=== PATIENT | female | born 1975 | race Caucasian/White ===

== ENCOUNTER 2016-12-10 18:18 | Emergency (ER) | payer SELFPAY ==
[~2016-12-10 18:18] MED LIST: NAPR500T8 PO
[2016-12-10 18:30] VITALS: BP 124/65
[2016-12-10] MEDS ORDERED: IBUP400T18 PO (18:46)
--- NOTE | 2016-12-10 18:46 | PHYS DOC ---
Past History Past Medical History: Diabetes Past Surgical History: Tubal ligation, Other Additional Past Surgical Histo: BREAST REDUCTION; ADNOIDECTOMY Smoking: Cigarettes, Greater than 1 pack/day Alcohol Use: None Drug Use: None Adult General Chief Complaint Chief Complaint: MULTIPLE COMPLAINTS HPI HPI 41-year-old female presenting to the emergency department today with a sore throat. She describes it as a scratchy pain that is mild intermittent nonradiating and without alleviating factors. She has this every 2 or 3 times a year. She thinks it may be allergies but is concerned that it might be strep throat. Review of systems is negative for chest pain, shortness of breath, fevers chills nausea or vomiting. All other review of systems is negative unless otherwise noted in history of present illness. ED course: 41-year-old female presenting to the emergency department today with sore throat. Vital signs unremarkable. Physical exam showed mild erythema of the posterior pharynx without any evidence of ZIPPER SETTER CHAINSTITCH. Normal range of motion of the neck. Otherwise unremarkable. The patient was then discharged home in stable condition to follow up with their primary care physician over the next 2- 3 days. They were to return if their symptoms worsened or if they were concerned for any reason. [id number] discharge instructions and return precautions were given. Patient's questions were answered to their satisfaction. Patient is comfortable plan. Review of Systems Review of Systems SEE ABOVE. Allergies Allergies Allergies Coded Allergies Type Severity Reaction Last Updated Verified No Known Drug Allergies 10/25/13 No Physical Exam Physical Exam See above Constitutional: Well developed, well nourished, no acute distress, non-toxic appearance. [] HENT: Normocephalic, atraumatic, bilateral external ears normal, oropharynx moist, no oral exudates, nose normal. [] Eyes: PERRLA, EOMI, conjunctiva normal, no discharge. [] Neck: Normal range of motion, no tenderness, supple, no stridor. [] Cardiovascular:Heart rate regular rhythm, no murmur [] Lungs & Thorax: Bilateral breath sounds clear to auscultation [] Abdomen: Bowel sounds normal, soft, no tenderness, no masses, no pulsatile masses. [] Skin: Warm, dry, no erythema, no rash. [] Back: No tenderness, no CVA tenderness. [] Extremities: No tenderness, no cyanosis, no clubbing, ROM intact, no edema. [] Neurologic: Alert and oriented X 3, normal motor function, normal sensory function, no focal deficits noted. [] Psychologic: Affect normal, judgement normal, mood normal. [] EKG EKG [] Radiology/Procedures Radiology/Procedures [] Course & Med Decision Making Course & Med Decision Making Pertinent Labs and Imaging studies reviewed. (See chart for details) [] Dragon Disclaimer Dragon Disclaimer This chart was dictated in whole or in part using Voice Recognition software in a busy, high-work load, and often noisy Emergency Department environment. It may contain unintended and wholly unrecognized errors or omissions. Departure Departure: Impression: Primary Impression: Viral sore throat Disposition: HOME, SELF-CARE Condition: STABLE Referrals: PCP,DAYAMI (PCP) MARIEL ASHRAF MD Patient Instructions: Sore Throat, [id number] Additional Instructions: Thank you for allowing us to participate in your care today. Followup with your primary care physician in 3 days if your symptoms do not improve. Call your Primary Doctor tomorrow and inform them of your visit today. If you do not have a primary care provider you can ask for a list of our primary care providers. Return to the emergency department you have any new or concerning findings. This should be evaluated by the primary care physician and any necessary consulting services for continued management within a few days after discharge. Return to emergency room if you have any new or concerning symptoms including but not limited to fever, chills, nausea, vomiting, intractable pain, any new rashes, chest pain, shortness of air, uncontrolled bleeding, difficulty breathing, and/or vision loss. Scripts Ibuprofen (IBUPROFEN) 400 Mg Tablet 1 TAB PO PRN Q8HRS Y for PAIN, #20 TAB Prov: YANELI SAMUELS MD 12/10/16 YANELI SAMUELS MD Dec 10, 2016 18:46
== END 2016-12-10 18:50 | disposition home or self-care (01) ==
LOC: ER 18:18
DX: J02.8 Acute pharyngitis due to other specified organisms (principal); B97.89 Other viral agents as the cause of diseases classified elsewhere; E11.9 Type 2 diabetes mellitus without complications; F17.210 Nicotine dependence, cigarettes, uncomplicated
CPT/HCPCS: 87070; 87880; 99283

== ENCOUNTER 2018-10-10 17:49 | Emergency (ER) | payer SELFPAY ==
[~2018-10-10] VITALS: Ht 157.5 cm; Wt 90.7 kg
[~2018-10-10 17:49] MED LIST changes: +IBUP400T18 PO
[2018-10-10 18:25] VITALS: BP 142/80
[2018-10-10] MEDS ORDERED: CYCL-331 PO (18:25)
--- NOTE | 2018-10-10 18:25 | PHYS DOC ---
Past History Past Medical History: Diabetes, Endometriosis, Fibromyalgia Past Surgical History: No Surgical History Additional Past Surgical Histo: BREAST REDUCTION; ADNOIDECTOMY Smoking: Cigarettes, Greater than 1 pack/day Additional Smoking Information: 1 PPD FOR 25 YEARS Alcohol Use: None Drug Use: None Adult General Chief Complaint Chief Complaint: LOWER BACK PAIN OR INJURY HPI HPI 43-year-old female presents with left lateral back pain. The patient was standing at the sink 3 days ago when she felt a strain/pop sensation in the lower back. She had pain across her L2-L4 area. The pain has localized more to the left side. It is lateral of her spine out in the muscles. She has been taking Aleve once a day but it has not made the pain go away. She denies trauma, falls, or overuse. She has not been doing any heavy lifting. She denies fever or chills. Review of Systems Review of Systems Constitutional: Denies fever or chills [] Eyes: Denies change in visual acuity, redness, or eye pain [] HENT: Denies nasal congestion or sore throat [] Respiratory: Denies cough or shortness of breath [] Cardiovascular: No additional information not addressed in HPI [] GI: Denies abdominal pain, nausea, vomiting, bloody stools or diarrhea [] : Denies dysuria or hematuria [] Musculoskeletal: Left-sided low back pain[] Integument: Denies rash or skin lesions [] Neurologic: Denies headache, focal weakness or sensory changes [] Endocrine: Denies polyuria or polydipsia [] All other systems were reviewed and found to be within normal limits, except as documented in this note. Allergies Allergies Allergies Coded Allergies Type Severity Reaction Last Updated Verified amoxicillin Allergy Mild GI UPSET 10/10/18 Yes clavulanic acid Allergy Mild GI UPSET 10/10/18 Yes Physical Exam Physical Exam Constitutional: Well developed, well nourished, no acute distress, non-toxic appearance. [] HENT: Normocephalic, atraumatic, bilateral external ears normal, oropharynx moist, no oral exudates, nose normal. [] Eyes: PERRLA, EOMI, conjunctiva normal, no discharge. [] Neck: Normal range of motion, no tenderness, supple, no stridor. [] Cardiovascular:Heart rate regular rhythm, no murmur [] Lungs & Thorax: Bilateral breath sounds clear to auscultation [] Abdomen: Bowel sounds normal, soft, no tenderness, no masses, no pulsatile masses. [] Skin: Warm, dry, no erythema, no rash. [] Back: Left-sided lumbar paraspinal muscle spasm and tightness.[] Extremities: No tenderness, no cyanosis, no clubbing, ROM intact, no edema. [] Neurologic: Alert and oriented X 3, normal motor function, normal sensory function, no focal deficits noted. [] Psychologic: Affect normal, judgement normal, mood normal. [] Current Patient Data Vital Signs Vital Signs Date Time Temp Pulse Resp B/P (MAP) Pulse Ox O2 Delivery O2 Flow Rate FiO2 10/10/18 18:02 97.5 94 21 96 Room Air EKG EKG [] Radiology/Procedures Radiology/Procedures [] Course & Med Decision Making Course & Med Decision Making Pertinent Labs and Imaging studies reviewed. (See chart for details) The patient appears to have a muscle strain of her lumbar paraspinal muscles. I have encouraged her a complete twice a day and I will give her prescription for Flexeril. She can ice or apply heat to the area also as needed. She is stable for discharge at this time. [] Dragon Disclaimer Dragon Disclaimer This electronic medical record was generated, in whole or in part, using a voice recognition dictation system. Departure Departure: Impression: Primary Impression: Lumbar strain Disposition: 01 HOME, SELF-CARE Condition: STABLE Referrals: DYAN NEVES (PCP) Patient Instructions: Back Pain, Adult, [id number] Scripts Cyclobenzaprine Hcl (CYCLOBENZAPRINE HCL) 10 Mg Tablet 1 TAB PO TID PRN for MUSCLE SPASMS, #30 TAB Prov: ROBB CUMMINGS DO 10/10/18 Problem Qualifiers Primary Impression: Lumbar strain Encounter type: initial encounter Qualified Codes: S39.012A - Strain of muscle, fascia and tendon of lower back, initial encounter ROBB CUMMINGS DO October 10, 2018 18:25
== END 2018-10-10 18:27 | disposition home or self-care (01) ==
LOC: ER 17:49
DX: S39.012A Strain of muscle, fascia and tendon of lower back, initial encounter (principal); E11.9 Type 2 diabetes mellitus without complications; M79.7 Fibromyalgia; F17.200 Nicotine dependence, unspecified, uncomplicated; Z88.1 Allergy status to other antibiotic agents; X50.9XXA Other and unspecified overexertion or strenuous movements or postures, initial encounter; Y93.89 Activity, other specified; Y92.89 Other specified places as the place of occurrence of the external cause; Y99.8 Other external cause status
CPT/HCPCS: 99283

== ENCOUNTER → 2019-07-14 | Outpatient (CLI) | payer OTHER ==
[~2019-07-14] MED LIST changes: +CYCL-331 PO
--- NOTE | 2019-07-14 14:42 | RAD ---
Indication: Screening recall for nodule in the upper outer left breast. COMPARISON: Screening mammogram of 07/06/2019 TECHNIQUE: XCCL view of the left breast with 2-D and 3-D technique was utilized and reviewed with computer-aided detection. FINDINGS: Scattered fibroglandular densities. With additional imaging, the nodule recalled from screening is shown to be represent a benign intramammary lymph node measuring 6 mm in length. IMPRESSION: Benign intramammary lymph node. No evidence of malignancy. Recommend return to routine screening next due in one year. BI-RADS Category 2 Benign findings Patient entered into a reminder system with target due date for next mammogram.
--- NOTE | 2019-08-18 10:18 | RAD ---
Additional imaging performed included targeted ultrasound of the right breast which confirmed benign sonographic appearance of the lymph node in the posterior upper-outer quadrant. On ultrasound, it measures 9.5 mm in long axis and 6 mm in short axis at the 10:00 position 10 cm from the nipple. Addended on 08/18/2019 10:15:21 AM by Hamida Ortega. Indication: Screening recall for nodule in the upper outer left breast. COMPARISON: Screening mammogram of 07/06/2019 TECHNIQUE: XCCL view of the left breast with 2-D and 3-D technique was utilized and reviewed with computer-aided detection. FINDINGS: Scattered fibroglandular densities. With additional imaging, the nodule recalled from screening is shown to be represent a benign intramammary lymph node measuring 6 mm in length. IMPRESSION: Benign intramammary lymph node. No evidence of malignancy. Recommend return to routine screening next due in one year. BI-RADS Category 2 Benign findings Patient entered into a reminder system with target due date for next mammogram
== END | disposition home or self-care (01) ==
LOC: MAMMO 12:54
PROVIDERS: ATTEND Obstetrics & Gynecology
DX: R92.8 Other abnormal and inconclusive findings on diagnostic imaging of breast (principal)
CPT/HCPCS: 76641; 77066

== ENCOUNTER 2019-09-24 19:20 | Emergency (ER) | payer SELFPAY ==
[~2019-09-24] VITALS: Ht 157.5 cm; Wt 87.2 kg
[2019-09-24 19:22] VITALS: BP 127/82
--- NOTE | 2019-09-24 19:25 | PHYS DOC ---
Past History Past Medical History: Anxiety, Bronchitis, Diabetes, Endometriosis, Fibromyalgia Past Surgical History: No Surgical History Additional Past Surgical Histo: BREAST REDUCTION; ADNOIDECTOMY Smoking: Cigarettes, Greater than 1 pack/day Alcohol Use: None Drug Use: None General Adult EDM: Chief Complaint: CHEST PAIN HPI: HPI: ".. I ve been having these episodes of chest pain... And got this nonproductive cough.. It seems like I get short of breath when I do anything... and it has been constant today...".. " Sometimes I feel.. Like I got a fever..." I have not been very good about my diet and my smoking..." Patient is a 44 year old female who presents with above hx and complaints of CP with cough and dyspnea since Saturday. Patient states the chest discomfort today has been constant. The patient states today radiates from her epigastric area up into left shoulder. Patient also having pain around her back on the right. The patient on right lower chest posterior and seems worse when she takes a deep breath or coughs.. Patient cough reportedly has been nonproductive. Patient does continue to smoke. Patient denies any recent travel outside the [facility]. Patient denies any specific ill contacts other than her who was recently diagnosed with pneumonia. Patient denies any has history of DVT, coagulopathy with her or family members. Patient does not do flu vaccination. Patient has not had a Pneumovax. Patient denies any immunosuppression. Patient has a past medical history of diabetes, fibromyalgia, endometriosis, and anxiety. Patient denies any history of coronary artery disease or angina. Review of Systems: Review of Systems: Constitutional: Subjective fever Eyes: Denies change in visual acuity HENT: Denies nasal congestion or sore throat Respiratory: History of cough and shortness of breath Cardiovascular: Complains of s chest pain . GI: Denies abdominal pain, nausea, vomiting, bloody stools or diarrhea : Denies dysuria Musculoskeletal: Denies back pain or joint pain Integument: Denies rash Neurologic: Denies headache, focal weakness or sensory changes Endocrine: Hx. polyuria or polydipsia Lymphatic: Denies swollen glands Psychiatric: Denies depression or anxiety Heart Score: HEART Score for Chest Pain: HEART Score for Chest Pain Response (Comments) Value History Slighlty/Non-Suspicious 0 ECG Normal 0 Age >45 - < 65 1 Risk Factors 1 or 2 Risk Factors 1 Troponin < Normal Limit 0 Total 2 Risk Factors: Risk Factors: DM, Current or recent (<one month) smoker, HTN, HLP, family history of CAD, obesity. Risk Scores: Score 0 - 3: 2.5% MACE over next 6 weeks - Discharge Home Score 4 - 6: 20.3% MACE over next 6 weeks - Admit for Clinical Observation Score 7 - 10: 72.7% MACE over next 6 weeks - Early Invasive Strategies Family History: Family History: recently had pneumonia Current Medications: Current Meds: See nursing for home meds Allergies: Allergies: Pt. has taken Amoxicillin- but can't take Augmentin it upsets her stomach. Allergies Coded Allergies Type Severity Reaction Last Updated Verified amoxicillin Allergy Mild GI UPSET 10/10/18 Yes clavulanic acid Allergy Mild GI UPSET 10/10/18 Yes Physical Exam: PE: Constitutional: Mild distress, non-toxic appearance. [] HENT: Normocephalic, atraumatic, bilateral external ears normal, oropharynx moist, no oral exudates, nose normal. [] Eyes: PERRLA, EOMI, conjunctiva normal, no discharge. [] Neck: Normal range of motion, no tenderness, supple, no stridor. [] Cardiovascular:Tachycardia Heart rate regular rhythm, no murmur [] Lungs & Thorax: Bilateral breath sounds equal at apex with scattered wheezes on auscultation []. Has right posterior basilar crackles and rhonchi.. Bilateral breast scars from prior breast reductions x2. Abdomen: Bowel sounds normal, soft, no tenderness, no masses, no pulsatile masses. Obese. Scars Skin: Warm, dry, no erythema, no rash. [] Back: No tenderness, no CVA tenderness. [] Extremities: No tenderness, no cyanosis, no clubbing, ROM intact, no edema. No cording appreciated Neurologic: Alert and oriented X 3, normal motor function, normal sensory function, no focal deficits noted. [] Psychologic: Affect anxious, judgement normal, mood normal. [] EKG: EKG: My interpretation EKG shows a sinus tachycardia 105 bpm. No findings of acute STEMI of contralateral changes. [] Radiology/Procedures: Radiology/Procedures: [][address] [address] IMAGING REPORT Signed PATIENT: LYNNETTE MANUEL ACCOUNT: [id number] : 1975 LOCATION: ER AGE: 44 SEX: F EXAM STATUS: PRE ER ORD. PHYSICIAN: GABRIEL WELSH MD REASON: Chest pain PROCEDURE: CHEST PA & LATERAL EXAM: PA and Lateral Views of the Chest DATE: 09/24/2019 9:27 PM INDICATION: Chest pain COMPARISON: 07/27/2006 FINDINGS: The heart is not enlarged. Mediastinal and hilar contours are stable. Patchy opacities are seen in the right infrahilar region and medial right lung base. No pleural effusion or pneumothorax. IMPRESSION: Right lower lung airspace opacities may represent atelectasis or developing consolidation. Electronically signed by: Waldo Longoria MD (09/24/2019 8:37 PM) [facility] DICTATED AND SIGNED BY: WALDO LONGORIA MD DATE: 09/24/192036 CC: GABRIEL WELSH MD; PCP,NO ~ Course & Med Decision Making: Course & Med Decision Making Pertinent Labs and Imaging studies reviewed. (See chart for details) Patient requesting discharge home . Risks of missed cardiac, PE, causes chest pain discussed. Patient declined further lab work, EKG or admission at this time. Patient encouraged to stop smoking. Patient take Tylenol or Ibuprofen for pain. Patient take Zithromax 250 mg daily. Patient use MDI 2 puffs 4 times a day. Must follow-up primary care. Self isolate. Follow-up primary care review ED work-up and pending labs. Patient return if any concerns. Patient did take half an aspirin a day. Must follow up. Impression: 1. Chest Zmra-toocidxy-rhxxr wall 2. Leukocytosis 13.0 3. DM= 253 4. Tobacco Use 5. Rt.Lower Lobe Pneumonia [] Dragon Disclaimer: Dragspencer Disclaimer: This electronic medical record was generated, in whole or in part, using a voice recognition dictation system. Departure Departure: Disposition: HOME/RESIDENCE PRIOR TO ADM Condition: STABLE Referrals: PCP,NO (PCP) Scripts Azithromycin (ZITHROMAX) 250 Mg Tablet 250 MG PO DAILY for ANTI-BIOTIC for 5 Days, #5 TAB 0 Refills Prov: GABRIEL WELSH MD 09/25/19 Albuterol Sulfate (VENTOLIN HFA INHALER) 18 Gm Hfa.aer.ad 2 PUFF IH PRN Q4HRS PRN for FOR ASTHMA, #1 INHALER 0 Refills Prov: GABRIEL WELSH MD 09/25/19 Dragon Disclaimer This chart was dictated in whole or in part using Voice Recognition software in a busy, high-work load, and often noisy Emergency Department environment. It may contain unintended and wholly unrecognized errors or omissions. Dragon Disclaimer This chart was dictated in whole or in part using Voice Recognition software in a busy, high-work load, and often noisy Emergency Department environment. It may contain unintended and wholly unrecognized errors or omissions. GABRIEL WELSH MD September 24, 2019 19:25
[2019-09-24] MEDS ORDERED: IV RINGERS SOLUTION,LACTATED 1,000 ML IV SCH (19:26)
[2019-09-24] MEDS ORDERED: ASPIRIN CHEWABLE 81 MG TABLET. PO ONE (19:30)
[2019-09-24 20:23] LABS: BASO # 0.1 x10^3/uL (0.0-0.2); BASO % 0 % (0-3); EOS # 0.3 x10^3/uL (0.0-0.7); EOS % 2 % (0-3); HEMATOCRIT 41.8 % (36.0-47.0); HEMOGLOBIN 14.1 g/dL (12.0-15.5); LYMPH # 2.8 x10^3/uL (1.0-4.8); LYMPH % 21 % (24-48); MEAN CORPUSCULAR HEMOGLOBIN 33 pg (25-35); MEAN CORPUSCULAR HGB CONC 34 g/dL (31-37); MEAN CORPUSCULAR VOLUME 99 fL (79-100); MONO # 1.1 x10^3/uL (0.0-1.1); MONO % 8 % (0-9); NEUT # 8.8 x10^3uL (1.8-7.7); NEUT % 68 % (31-73); PLATELET COUNT 295 x10^3/uL (140-400); RED BLOOD COUNT 4.23 x10^6/uL (3.50-5.40); RED CELL DISTRIBUTION WIDTH 13.5 % (11.5-14.5)
[2019-09-24 20:24] LABS: U PREG PATIENT NEGATIVE (NEG)
[2019-09-24 20:30] LABS: ANION GAP 6 (6-14); BLOOD UREA NITROGEN 15 mg/dL (7-20); CALCIUM 8.9 mg/dL (8.5-10.1); CARBON DIOXIDE 28 mmol/L (21-32); CHLORIDE 100 mmol/L (98-107); CREATININE 0.8 mg/dL (0.6-1.0); GFR 77.2; GLUCOSE 253 mg/dL (70-99); POTASSIUM 4.1 mmol/L (3.5-5.1); SODIUM 134 mmol/L (136-145)
[2019-09-24 20:30] LABS: AMPHETAMINE/METHAMPHETAMINE NEG (NEG); BARBITURATES NEG (NEG); BENZODIAZEPINES NEG (NEG); CANNABINOIDS NEG (NEG); COCAINE NEG (NEG); METHADONE NEG (NEG); OPIATES NEG (NEG); PHENCYCLIDINE NEG (NEG)
[2019-09-24 20:32] LABS: BACTERIA,URINE 0 /HPF (0-FEW); BILIRUBIN,URINE NEG (NEG); CLARITY,URINE CLEAR; COLOR,URINE YELLOW; GLUCOSE,URINE >=1000 mg/dL (NEG); NITRITE,URINE NEG (NEG); SQUAMOUS EPITHELIAL CELL,UR FEW /LPF; UROBILINOGEN,URINE 0.2 mg/dL (0.2 mg/dL)
[2019-09-24 20:40] LABS: ALBUMIN 3.5 g/dL (3.4-5.0); ALK PHOS 86 U/L (46-116); ALT (SGPT) 19 U/L (14-59); AST (SGOT) 9 U/L (15-37); DIRECT BILIRUBIN < 0.1 mg/dL (0.0-0.2); LIPASE 112 U/L (73-393); MAGNESIUM 2.2 mg/dL (1.8-2.4); TOTAL BILIRUBIN 0.1 mg/dL (0.2-1.0); TOTAL PROTEIN 7.7 g/dL (6.4-8.2)
--- NOTE | 2019-09-24 20:40 | RAD ---
EXAM: PA and Lateral Views of the Chest DATE: 09/24/2019 9:27 PM INDICATION: Chest pain COMPARISON: 07/27/2006 FINDINGS: The heart is not enlarged. Mediastinal and hilar contours are stable. Patchy opacities are seen in the right infrahilar region and medial right lung base. No pleural effusion or pneumothorax. IMPRESSION: Right lower lung airspace opacities may represent atelectasis or developing consolidation. Electronically signed by: Waldo Longoria MD (09/24/2019 8:37 PM) ALISA
[2019-09-25] MEDS ORDERED: ALBU2.5V8 IH (00:09)
[2019-09-25] MEDS ORDERED: AZIT250T PO (00:09)
[2019-09-25] MEDS ORDERED: cefTRIAXone SODIUM 1 GM VIAL ONE (00:13)
[2019-09-25] MEDS ORDERED: IV NORMAL SALINE 50ML 0 ML ONE (00:13)
[2019-09-25] MEDS ORDERED: ASPIRIN CHEWABLE 81 MG TABLET. ONE ×2 (00:14→00:29)
[2019-09-25] MEDS ORDERED: AZITHROMYCIN 250 MG TABLET. PO ONE (00:30)
[2019-09-25 15:14] LABS: THYROID STIM HORMONE (TSH) 1.192 uIU/mL (0.358-3.740)
--- NOTE | 2019-09-25 23:07 | EKG ---
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
== END 2019-09-25 00:30 | disposition home or self-care (01) ==
LOC: ER 19:20
DX: J18.9 Pneumonia, unspecified organism (principal); R07.89 Other chest pain; D72.829 Elevated white blood cell count, unspecified; E11.9 Type 2 diabetes mellitus without complications; F41.9 Anxiety disorder, unspecified; M79.7 Fibromyalgia; F17.210 Nicotine dependence, cigarettes, uncomplicated; Z98.890 Other specified postprocedural states; Z88.1 Allergy status to other antibiotic agents; Z88.6 Allergy status to analgesic agent
CPT/HCPCS: 36415; 71046; 80048; 80061; 80076; 80307; 81001; 81025; 82550; 83690; 83735; 83880; 84443; 84484; 85025; 85379; 85610; 85730; 93005; 99285; J0456

== ENCOUNTER 2019-10-24 04:06 | Emergency (ER) | payer OTHER ==
[~2019-10-24] VITALS: Ht 157.5 cm; Wt 87.2 kg
[~2019-10-24 04:06] MED LIST changes: +ALBU2.5V8 IH; +AZIT250T PO
--- NOTE | 2019-10-24 04:08 | PHYS DOC ---
Past History Past Medical History: Anxiety, Bronchitis, COPD, Diabetes, Endometriosis, Fibromyalgia Additional Past Medical Histor: emphazyma Past Surgical History: Tubal ligation, Other Additional Past Surgical Histo: BREAST REDUCTION; ADNOIDECTOMY Smoking: Cigarettes, Greater than 1 pack/day Alcohol Use: None Drug Use: None General Adult HPI: HPI: "..I am still coughing all the time.. I did anther course of Zithromax...Dr. Lugo..wanted to make sure my pneumonia when away.,..but I ams still coughing..I have not be able to stop smoking yet..." Patient is a 44 year old female who presents with above hx and complaints chronic cough. There is some production of yellow speak sputum. Patient completed a second course of Zithromax 1 week ago. Patient was seen on 09/24/2019 for similar complaints. Coughing is associated with some chest wall pain. Patient states she is reduced her tobacco use but still proximal smoking approximate 1pack/day to her day. No recent travel outside [facility]. No specific ill contacts. Does have a past history of DVT and coagulopathy with family members. Patient does not do flu vaccination. Patient does not do Pneumovax. Patient denies any history of immune suppression. Patient has past history of diabetes, fibromyalgia, endometriosis and anxiety. Patient denies a vt past history of coronary artery disease. Patient denies any history of CHF. Patient denies any history of IV drug use. Review of Systems: Review of Systems: Constitutional: Denies fever or chills Eyes: Denies change in visual acuity HENT: Complaints congestion Respiratory: Complaints of cough and wheezing. Cardiovascular: Denies chest pain or edema GI: Denies abdominal pain, nausea, vomiting, bloody stools or diarrhea : Denies dysuria Musculoskeletal: Denies back pain or joint pain Integument: Denies rash Neurologic: Denies headache, focal weakness or sensory changes Endocrine: Denies polyuria or polydipsia Lymphatic: Denies swollen glands Psychiatric: Denies depression or anxiety Heart Score: HEART Score for Chest Pain: HEART Score for Chest Pain Response (Comments) Value History Moderately Suspicious 1 ECG Nonspecific Repolarizatio 1 Age >45 - < 65 1 Risk Factors 1 or 2 Risk Factors 1 Troponin < Normal Limit 0 Total 4 Risk Factors: Risk Factors: DM, Current or recent (<one month) smoker, HTN, HLP, family history of CAD, obesity. Risk Scores: Score 0 - 3: 2.5% MACE over next 6 weeks - Discharge Home Score 4 - 6: 20.3% MACE over next 6 weeks - Admit for Clinical Observation Score 7 - 10: 72.7% MACE over next 6 weeks - Early Invasive Strategies Family History: Family History: Noncontributory to presentation Current Medications: Current Meds: See nursing for home meds Allergies: Allergies: Allergies Coded Allergies Type Severity Reaction Last Updated Verified amoxicillin Allergy Mild GI UPSET 10/10/18 Yes clavulanic acid Allergy Mild GI UPSET 10/10/18 Yes Physical Exam: PE: Constitutional: , no acute distress, non-toxic appearance. [] HENT: Normocephalic, atraumatic, bilateral external ears normal, oropharynx moist, no oral exudates, nose normal. [] Eyes: PERRLA, EOMI, conjunctiva normal, no discharge. [] Neck: Normal range of motion, no tenderness, supple, no stridor. [] Cardiovascular. Tachycardia:Heart rate regular rhythm, no murmur [] Lungs & Thorax: Bilateral breath sounds equal apex with scattered wheezes. There is some basilar rhonchi on right base on Auscultation [] old surgery scars-breast reduction surgery Abdomen: Bowel sounds normal, soft, no tenderness, no masses, no pulsatile masses. Obese. Old surgery scars Skin: Warm, dry, no erythema, no rash. [] Back: No tenderness, no CVA tenderness. [] Extremities: No tenderness, no cyanosis, no clubbing, ROM intact, no edema. No cording appreciated. Neurologic: Alert and oriented X 3, normal motor function, normal sensory function, no focal deficits noted. [] Psychologic: Affect n anxious judgement poor insight or understanding of medical testing, mood normal. [] EKG: EKG: My interpretation EKG shows a sinus rhythm at 98 bpm. No findings of acute STEMI of contralateral changes. [] Radiology/Procedures: Radiology/Procedures: [][address] [address] IMAGING REPORT Signed PATIENT: LYNNETTE MANUEL ACCOUNT: [id number] : 1975 LOCATION: ER AGE: 44 SEX: F EXAM STATUS: PRE ER ORD. PHYSICIAN: GABRIEL WELSH MD REASON: cough PROCEDURE: CHEST PA & LATERAL EXAM: AP View of the chest DATE: 10/24/2019 4:17 AM INDICATION: Cough COMPARISON: 09/24/2019 FINDINGS: The heart is not enlarged. Mediastinal and hilar contours are stable. Patchy right lung base parenchymal opacities may represent atelectasis or developing consolidation, more prominent than 09/24/2019. No pleural effusion or pneumothorax. IMPRESSION: Patchy right lung base parenchymal opacities may represent atelectasis or developing consolidation, more prominent than 09/24/2019. Electronically signed by: Waldo Heredia MD (10/24/2019 5:09 AM) [facility] DICTATED AND SIGNED BY: WALDO HEREDIA MD DATE: 10/24/19 0509 CC: GABRIEL WELSH MD; PCP,NO ~ Course & Med Decision Making: Course & Med Decision Making Pertinent Labs and Imaging studies reviewed. (See chart for details) Pt.refused CT chest- at 0500 hrs. Patient encouraged to stop smoking. Patient encouraged follow-up with Dr. Lugo. Patient encouraged to return if she elected to have a contrast CT which may show details of her right lower lobe infiltrate. Risks of malignancy discussed. Impression: 1. Cough 2. Hx. Chronic Bronchitis 3. Tobacco Use 4. Rt. lower lobe infiltrate 5. Leukocytosis 13,7 [] Dragon Disclaimer: Dragon Disclaimer: This electronic medical record was generated, in whole or in part, using a voice recognition dictation system. Departure Departure: Disposition: 01 HOME/RESIDENCE PRIOR TO ADM Condition: STABLE Referrals: PCP,NO (PCP) Justification of Admission: Justification of Admission: Justification of Admission Dx: N/A Dragon Disclaimer This chart was dictated in whole or in part using Voice Recognition software in a busy, high-work load, and often noisy Emergency Department environment. It may contain unintended and wholly unrecognized errors or omissions. Dragon Disclaimer This chart was dictated in whole or in part using Voice Recognition software in a busy, high-work load, and often noisy Emergency Department environment. It may contain unintended and wholly unrecognized errors or omissions. GABRIEL WELSH MD Oct 24, 2019 04:08
[2019-10-24] MEDS ORDERED: CONTRAST GIVEN MC PRN (04:30)
[2019-10-24] MEDS: IOHEXOL 350 MG/ML 100 ML VIAL. IV ONE ×2 (04:54→05:02)
[2019-10-24] MEDS ORDERED: IV RINGERS SOLUTION,LACTATED 1,000 ML IV SCH (05:00)
[2019-10-24] MEDS ORDERED: ALBUTEROL SULFATE 8GM INHALER. IH ONE (05:00)
[2019-10-24] MEDS ORDERED: ASPIRIN CHEWABLE 81 MG TABLET. PO ONE (05:00)
[2019-10-24] MEDS ORDERED: methylPREDNISolone SOD SUCC PF 125 MG/2 ML VIAL. IV ONE (05:00)
--- NOTE | 2019-10-24 05:12 | RAD ---
EXAM: AP View of the chest DATE: 10/24/2019 4:17 AM INDICATION: Cough COMPARISON: 09/24/2019 FINDINGS: The heart is not enlarged. Mediastinal and hilar contours are stable. Patchy right lung base parenchymal opacities may represent atelectasis or developing consolidation, more prominent than 09/24/2019. No pleural effusion or pneumothorax. IMPRESSION: Patchy right lung base parenchymal opacities may represent atelectasis or developing consolidation, more prominent than 09/24/2019. Electronically signed by: Waldo Longoria MD (10/24/2019 5:09 AM) ALISA
[2019-10-24 05:21] LABS: BASO # 0.1 x10^3/uL (0.0-0.2); BASO % 1 % (0-3); EOS # 0.4 x10^3/uL (0.0-0.7); EOS % 3 % (0-3); HEMATOCRIT 42.3 % (36.0-47.0); HEMOGLOBIN 14.6 g/dL (12.0-15.5); LYMPH # 3.3 x10^3/uL (1.0-4.8); LYMPH % 24 % (24-48); MEAN CORPUSCULAR HEMOGLOBIN 34 pg (25-35); MEAN CORPUSCULAR HGB CONC 34 g/dL (31-37); MEAN CORPUSCULAR VOLUME 98 fL (79-100); MONO # 1.1 x10^3/uL (0.0-1.1); MONO % 8 % (0-9); NEUT # 8.9 x10^3uL (1.8-7.7); NEUT % 65 % (31-73); PLATELET COUNT 327 x10^3/uL (140-400); RED BLOOD COUNT 4.32 x10^6/uL (3.50-5.40); RED CELL DISTRIBUTION WIDTH 13.5 % (11.5-14.5); WHITE BLOOD COUNT 13.7 x10^3/uL (4.0-11.0)
[2019-10-24 05:28] LABS: BILIRUBIN,URINE NEG (NEG); CLARITY,URINE CLEAR; COLOR,URINE YELLOW; GLUCOSE,URINE NEG (NEG); NITRITE,URINE NEG (NEG); UROBILINOGEN,URINE 0.2 mg/dL (0.2 mg/dL)
[2019-10-24 05:29] LABS: BACTERIA,URINE 0 /HPF (0-FEW); RBC,URINE 0 /HPF (0-2); SQUAMOUS EPITHELIAL CELL,UR OCC /LPF; WBC,URINE OCC /HPF (0-4)
[2019-10-24 05:51] LABS: CALCIUM 8.5 mg/dL (8.5-10.1); CREATININE 0.8 mg/dL (0.6-1.0); GFR 77.2; POTASSIUM 3.8 mmol/L (3.5-5.1)
[2019-10-24 05:51] LABS: BARBITURATES NEG (NEG); BENZODIAZEPINES NEG (NEG); CANNABINOIDS NEG (NEG); COCAINE NEG (NEG); METHADONE NEG (NEG); OPIATES NEG (NEG); PHENCYCLIDINE NEG (NEG)
[2019-10-24 05:57] LABS: AMPHETAMINE/METHAMPHETAMINE NEG (NEG)
[2019-10-24 06:09] LABS: ALBUMIN 3.3 g/dL (3.4-5.0); DIRECT BILIRUBIN 0.1 mg/dL (0.0-0.2); MAGNESIUM 1.9 mg/dL (1.8-2.4); TOTAL BILIRUBIN 0.2 mg/dL (0.2-1.0); TOTAL PROTEIN 7.8 g/dL (6.4-8.2)
[2019-10-24 06:10] VITALS: BP 122/71
--- NOTE | 2019-10-26 07:17 | EKG ---
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
== END 2019-10-24 06:20 | disposition home or self-care (01) ==
LOC: ER 04:06
DX: R05 Cough (principal); R91.8 Other nonspecific abnormal finding of lung field; D72.829 Elevated white blood cell count, unspecified; J44.9 Chronic obstructive pulmonary disease, unspecified; E11.9 Type 2 diabetes mellitus without complications; M79.7 Fibromyalgia; F17.210 Nicotine dependence, cigarettes, uncomplicated; Z88.1 Allergy status to other antibiotic agents
CPT/HCPCS: 36415; 71046; 80048; 80076; 80307; 81001; 82550; 83690; 83735; 83880; 84443; 84484; 85025; 85379; 85610; 85730; 87040; 93005; 94640; 96374; 99285; J2930; J7120; J7613; Q9967; 94664

== ENCOUNTER 2020-03-23 01:47 | Emergency (ER) | payer SELFPAY ==
[~2020-03-23] VITALS: Ht 157.5 cm; Wt 95.0 kg
--- NOTE | 2020-03-23 01:50 | PHYS DOC ---
Past History Past Medical History: Anxiety, Bronchitis, COPD, Diabetes, Endometriosis, Fibromyalgia, Pneumonia Additional Past Medical Histor: emphazema Past Surgical History: Tubal ligation, Other Additional Past Surgical Histo: BREAST REDUCTION; ADNOIDECTOMY Smoking: Cigarettes, Greater than 1 pack/day Alcohol Use: None Drug Use: None General Adult HPI: HPI: ".. I though maybe had a fever..and I had a cough tonight...' I am worried I may have COVID..? Patient is a 44 year old female who presents with above hx and complaints of a cough and a fever of 99 at home tonight. Patient does continue to smoke. Patient does not do flu vaccination. Patient does not do Pneumovax . I asked patient if she would do the COVID vaccination she said no. Patient denies any specific ill contacts. Patient denies any recent travel outside the [facility]. Patient does do breathing treatments for her chronic bronchitis. Patient denies any history immunosuppression. Patient's last severe bronchitis/pneumonia episode was an 10/24/2019. Which she has received 2 courses of Zithromax. Patient does have a past history of DVT and coagulopathy with family members patient denies any history immunosuppression. Patient has long history of diabetes, fibromyalgia, endometriosis and anxiety. No past history of coronary artery disease. Patient denies any history of CHF. Patient denies any illicit drug use. Pt. very concerned she has COVID Review of Systems: Review of Systems: Constitutional: Complains of fever Eyes: Denies change in visual acuity HENT: Some complaints of nasal congestion and sore throat Respiratory: History of cough and wheezing Cardiovascular: Denies chest pain or edema GI: Denies abdominal pain, nausea, vomiting, bloody stools or diarrhea : Denies dysuria Musculoskeletal: Denies back pain or joint pain Integument: Denies rash Neurologic: Denies headache, focal weakness or sensory changes Endocrine: Denies polyuria or polydipsia Lymphatic: Denies swollen glands Psychiatric: History of anxiety Family History: Family History: Noncontributory to presentation Current Medications: Current Meds: See nursing for home meds Allergies: Allergies: Allergies Coded Allergies Type Severity Reaction Last Updated Verified amoxicillin Allergy Intermediate 10/24/19 Yes clavulanic acid Allergy Intermediate 10/24/19 Yes Physical Exam: PE: Constitutional: no acute distress, non-toxic appearance. [] HENT: Normocephalic, atraumatic, bilateral external ears normal, oropharynx moist, no oral exudates, nose slightly congested turbinates with clear rhinorrhea Eyes: PERRLA, EOMI, conjunctiva normal, no discharge. [] Neck: Normal range of motion, no tenderness, supple, no stridor. [] Cardiovascular:Heart rate regular rhythm, no murmur [] Lungs & Thorax: Bilateral breath sounds equal apex with few scattered wheezes auscultation [] Abdomen: Bowel sounds normal, soft, no tenderness, no masses, no pulsatile masses. Obese. Old surgery scars. Skin: Warm, dry, no erythema, no rash. [] Back: No tenderness, no CVA tenderness. [] Extremities: No tenderness, no cyanosis, no clubbing, ROM intact, no edema. No cording appreciated Neurologic: Alert and oriented X 3, moves all extremities on request. Distal sensory,, no focal deficits noted. [] Psychologic: Affect anxious, judgement normal, mood normal. [] EKG: EKG: My interpretation EKG shows a sinus tachycardia 122 bpm. There are no findings of acute morphology other than tachycardia. [] Radiology/Procedures: Radiology/Procedures: My interpretation of chest x-ray is shows no large consolidations. Does have some patchy changes consistent with viral infection. No free air under diaphragm. [] Heart Score: HEART Score for Chest Pain: HEART Score for Chest Pain Response (Comments) Value History Slighlty/Non-Suspicious 0 ECG Nonspecific Repolarizatio 1 Age >45 - < 65 1 Risk Factors 1 or 2 Risk Factors 1 Troponin < Normal Limit 0 Total 3 Risk Factors: Risk Factors: DM, Current or recent (<one month) smoker, HTN, HLP, family history of CAD, obesity. Risk Scores: Score 0 - 3: 2.5% MACE over next 6 weeks - Discharge Home Score 4 - 6: 20.3% MACE over next 6 weeks - Admit for Clinical Observation Score 7 - 10: 72.7% MACE over next 6 weeks - Early Invasive Strategies Course & Med Decision Making: Course & Med Decision Making Pertinent Labs and Imaging studies reviewed. (See chart for details) Patient declined to stay for fluid bolus. Patient declined to stay for completion of her labs. Requesting discharge home. Reviewed with patient need to self isolate for the next 10 days. Patient also advised to cover mouth and nose with a mask at all times. Patient use her MDI as previous directed. Rohit manjarrez will be started on Zithromax 250 mg daily for 5 days to cover for atypical pneumonias however suspect this is a viral syndrome. Patient return if any concerns. Follow-up primary care. Patient take Tylenol ibuprofen as needed for fever and discomfort. Strongly encourage when patient she is over this acute episode consider getting yearly flu vaccination as well as completing Pneumovax series x2. Patient strongly encouraged to stop smoking. Impression: 1. Viral syndrome 2. Leukocytosis 21.5 3. Diabetes-glucose elevated at 243 (ate pizza before arrival) 4. Tobacco abuse [] Dragon Disclaimer: Dragon Disclaimer: This electronic medical record was generated, in whole or in part, using a voice recognition dictation system. Departure Departure: Referrals: DEANNA CHUNG DO (PCP) Scripts Azithromycin (AZITHROMYCIN TABLET) 250 Mg Tablet 250 MG PO DAILY for ANTI-BIOTIC for 5 Days, #5 TAB 0 Refills Prov: GABRIEL WELSH MD 03/23/20 Dragon Disclaimer This chart was dictated in whole or in part using Voice Recognition software in a busy, high-work load, and often noisy Emergency Department environment. It may contain unintended and wholly unrecognized errors or omissions. GABRIEL WELSH MD Mar 23, 2020 01:50
[2020-03-23] MEDS ORDERED: IV RINGERS SOLUTION,LACTATED 1,000 ML IV SCH (02:00)
[2020-03-23] MEDS ORDERED: ALBUTEROL SULFATE 8GM INHALER. IH ONE (02:00)
[2020-03-23 02:59] LABS: BASO # 0.2 x10^3/uL (0.0-0.2); BASO % 1 % (0-3); EOS # 0.5 x10^3/uL (0.0-0.7); EOS % 2 % (0-3); HEMATOCRIT 41.5 % (36.0-47.0); HEMOGLOBIN 13.8 g/dL (12.0-15.5); LYMPH # 3.6 x10^3/uL (1.0-4.8); LYMPH % 17 % (24-48); MEAN CORPUSCULAR HEMOGLOBIN 33 pg (25-35); MEAN CORPUSCULAR HGB CONC 33 g/dL (31-37); MEAN CORPUSCULAR VOLUME 98 fL (79-100); MONO # 1.7 x10^3/uL (0.0-1.1); MONO % 8 % (0-9); NEUT # 15.5 x10^3uL (1.8-7.7); NEUT % 72 % (31-73); PLATELET COUNT 325 x10^3/uL (140-400); RED BLOOD COUNT 4.23 x10^6/uL (3.50-5.40); RED CELL DISTRIBUTION WIDTH 13.3 % (11.5-14.5); WHITE BLOOD COUNT 21.5 x10^3/uL (4.0-11.0)
[2020-03-23 03:04] LABS: BACTERIA,URINE 0 /HPF (0-FEW); BILIRUBIN,URINE NEG (NEG); CLARITY,URINE CLEAR; COLOR,URINE YELLOW; GLUCOSE,URINE 250 mg/dL (NEG); NITRITE,URINE NEG (NEG); RBC,URINE 0 /HPF (0-2); SQUAMOUS EPITHELIAL CELL,UR OCC /LPF; UROBILINOGEN,URINE 0.2 mg/dL (0.2 mg/dL); WBC,URINE RARE /HPF (0-4)
[2020-03-23 03:05] LABS: CALCIUM 9.3 mg/dL (8.5-10.1); GFR 59.7; POTASSIUM 3.8 mmol/L (3.5-5.1)
[2020-03-23 03:10] LABS: ALBUMIN 3.5 g/dL (3.4-5.0); DIRECT BILIRUBIN 0.1 mg/dL (0.0-0.2); MAGNESIUM 2.2 mg/dL (1.8-2.4); TOTAL BILIRUBIN 0.1 mg/dL (0.2-1.0)
[2020-03-23 03:19] LABS: % BANDS 4 % (0-9); % EOS 7 % (0-5); % LYMPHS 18 % (24-48); % MONOS 2 % (0-10); % SEGS 69 % (35-66)
[2020-03-23 03:42] LABS: INFLUENZA A PATIENT NEGATIVE (NEGATIVE); INFLUENZA B PATIENT NEGATIVE (NEGATIVE)
[2020-03-23] MEDS ORDERED: AZIT250T6 PO (03:45)
[2020-03-23] MEDS ORDERED: AZITHROMYCIN 250 MG TABLET. ONE (03:54)
[2020-03-23 03:58] LABS: PLT ESTIMATE ADEQUATE (ADEQUATE)
[2020-03-23 04:00] VITALS: BP 136/85
[2020-03-23] MEDS ORDERED: AZITHROMYCIN 250 MG TABLET. PO ONE (04:00)
--- NOTE | 2020-03-23 04:41 | EKG ---
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
--- NOTE | 2020-03-23 06:00 | RAD ---
EXAM: CHEST ONE VIEW. HISTORY: Cough. COMPARISON: None. FINDINGS: A frontal view of the chest is obtained. There are no confluent infiltrates. There is no pneumothorax or pleural effusion. The heart is not enlarged. IMPRESSION: 1. No confluent infiltrates. Electronically signed by: Eusebia Roberts MD (03/23/2020 5:58 AM) [facility]
== END 2020-03-23 04:00 | disposition home or self-care (01) ==
LOC: ER 01:47
DX: B34.9 Viral infection, unspecified (principal); D72.829 Elevated white blood cell count, unspecified; E11.9 Type 2 diabetes mellitus without complications; F41.9 Anxiety disorder, unspecified; J44.9 Chronic obstructive pulmonary disease, unspecified; M79.7 Fibromyalgia; F17.210 Nicotine dependence, cigarettes, uncomplicated; Z88.1 Allergy status to other antibiotic agents
CPT/HCPCS: 36415; 71045; 80048; 80076; 81001; 82550; 83690; 83735; 84443; 84484; 85007; 85025; 85379; 85610; 85730; 87040; 87070; 87804; 87880; 93005; 94640; 99285; J0456; J7613; 94664

== ENCOUNTER 2020-10-13 15:13 | Emergency (ER) | payer SELFPAY ==
[~2020-10-13] VITALS: Ht 160 cm; Wt 86.0 kg
[~2020-10-13 15:13] MED LIST changes: +AZIT250T6 PO
--- NOTE | 2020-10-13 15:50 | PHYS DOC ---
Past History Past Medical History: Asthma, COPD Additional Past Medical Histor: emphazema Past Surgical History: Tubal ligation, Other Additional Past Surgical Histo: BREAST REDUCTION, EAR TUBES Smoking: Cigarettes, Greater than 1 pack/day Alcohol Use: None Drug Use: None General Adult EDM: Chief Complaint: VAGINAL PROBLEM HPI: HPI: 45-year-old female presents with vaginal itching and burning. Patient has had this for several days. She tried Monistat [id number] without relief. She called her primary care physician and did 2 pills of Diflucan 2 days apart. Patient continues to have itching and burning down in her vaginal area. She st ates that seems worse on the left. She gets a specific burning sensation on the left when she urinates. She denies increased urinary frequency. She is now on her menstrual cycle. She has had her tubes tied denies . She is not concerned about STD. She has never had symptoms like this before. Review of Systems: Review of Systems: Constitutional: Denies fever or chills Eyes: Denies change in visual acuity HENT: Denies nasal congestion or sore throat Respiratory: Denies cough or shortness of breath Cardiovascular: Denies chest pain or edema GI: Denies abdominal pain, nausea, vomiting, bloody stools or diarrhea : Vaginal itching and burning Musculoskeletal: Denies back pain or joint pain Integument: Denies rash Neurologic: Denies headache, focal weakness or sensory changes Endocrine: Denies polyuria or polydipsia Lymphatic: Denies swollen glands Psychiatric: Denies depression or anxiety Allergies: Allergies: Allergies Coded Allergies Type Severity Reaction Last Updated Verified amoxicillin Allergy Intermediate 10/24/19 Yes clavulanic acid Allergy Intermediate 10/24/19 Yes cephalexin Allergy Unknown 10/13/20 Yes hydrocodone Allergy Unknown 10/13/20 Yes Physical Exam: PE: Constitutional: Well developed, well nourished, no acute distress, non-toxic appearance. [] HENT: Normocephalic, atraumatic, bilateral external ears normal, oropharynx moist, no oral exudates, nose normal. [] Eyes: PERRLA, EOMI, conjunctiva normal, no discharge. [] Neck: Normal range of motion, no tenderness, supple, no stridor. [] Cardiovascular:Heart rate regular rhythm, no murmur [] Lungs & Thorax: Bilateral breath sounds clear to auscultation [] Abdomen: Bowel sounds normal, soft, no tenderness, no masses, no pulsatile masses. [] Skin: Warm, dry, no erythema, no rash. [] Back: No tenderness, no CVA tenderness. [] Extremities: No tenderness, no cyanosis, no clubbing, ROM intact, no edema. [] Neurologic: Alert and oriented X 3, normal motor function, normal sensory function, no focal deficits noted. [] Psychologic: Affect normal, judgement normal, mood normal. : Shaved pubic hair, normal external exam, clear discharge mixed with blood. No obvious cuts, tears or excoriations. No significant pain with exam. [] Current Patient Data: Vital Signs: Vital Signs Date Time Temp Pulse Resp B/P (MAP) Pulse Ox O2 Delivery O2 Flow Rate FiO2 10/13/20 15:26 97.9 106 16 121/80 (94) 98 Room Air EKG: EKG: [] Radiology/Procedures: Radiology/Procedures: [] Heart Score: C/O Chest Pain: N/A Risk Factors: Risk Factors: DM, Current or recent (<one month) smoker, HTN, HLP, family history of CAD, obesity. Risk Scores: Score 0 - 3: 2.5% MACE over next 6 weeks - Discharge Home Score 4 - 6: 20.3% MACE over next 6 weeks - Admit for Clinical Observation Score 7 - 10: 72.7% MACE over next 6 weeks - Early Invasive Strategies Course & Med Decision Making: Course & Med Decision Making Pertinent Labs and Imaging studies reviewed. (See chart for details) [] Flor Disclaimer: Flor Disclaimer: This electronic medical record was generated, in whole or in part, using a voice recognition dictation system. Departure Departure: Impression: Primary Impression: Trichomoniasis, urogenital Disposition: HOME / SELF CARE / HOMELESS Condition: STABLE Referrals: DEANNA CHUNG DO (PCP) Patient Instructions: Trichomoniasis-Brief Scripts Metronidazole (METRONIDAZOLE) 500 Mg Tablet 1 TAB PO BID for STD for 7 Days, #14 TAB 0 Refills Prov: ROBB CUMMINGS DO 10/13/20 Doxycycline Hyclate (DOXYCYCLINE HYCLATE) 100 Mg Capsule 1 CAP PO BID for STD, #14 CAP Prov: ROBB CUMMINGS DO 10/13/20 ROBB CUMMINGS DO October 13, 2020 15:50
[2020-10-13 16:48] LABS: BILIRUBIN,URINE NEG (NEG); CLARITY,URINE CLOUDY; COLOR,URINE YELLOW; GLUCOSE,URINE NEG (NEG); NITRITE,URINE NEG (NEG); UROBILINOGEN,URINE 0.2 mg/dL (0.2 mg/dL)
[2020-10-13 16:51] LABS: BACTERIA,URINE 0 /HPF (0-FEW); RBC,URINE 20-40 /HPF (0-2); SQUAMOUS EPITHELIAL CELL,UR FEW /LPF; WBC,URINE 20-40 /HPF (0-4)
[2020-10-13] MEDS ORDERED: METR-34 PO (17:13)
[2020-10-13] MEDS ORDERED: DOXY100C2 PO (17:13)
[2020-10-13 17:21] VITALS: BP 108/63
[2020-10-14 13:12] LABS: CHLAMYDIA PROBE Negative (Negative)
== END 2020-10-13 17:22 | disposition home or self-care (01) ==
LOC: ER 15:13
DX: A59.00 Urogenital trichomoniasis, unspecified (principal); J44.9 Chronic obstructive pulmonary disease, unspecified; Z88.2 Allergy status to sulfonamides; Z88.6 Allergy status to analgesic agent; Z98.51 Tubal ligation status
CPT/HCPCS: 81001; 87086; 87491; 87591; 99283; Q0111; 87147

== ENCOUNTER 2020-11-13 18:18 | Emergency (ER) | payer SELFPAY ==
[~2020-11-13] VITALS: Ht 160 cm; Wt 86.0 kg
[2020-11-13 18:18] VITALS: BP 127/107
[~2020-11-13 18:18] MED LIST changes: +DOXY100C2 PO; +METR-34 PO
--- NOTE | 2020-11-13 20:41 | PHYS DOC ---
Past History Past Medical History: Asthma, COPD Additional Past Medical Histor: emphazema (MIKE GARCIA APRN) Past Surgical History: Tubal ligation, Other Additional Past Surgical Histo: BREAST REDUCTION, EAR TUBES (MIKE GARCIA APRN) Smoking: Cigarettes, Greater than 1 pack/day Alcohol Use: None Drug Use: None (MIKE GARCIA APRN) General Adult EDM: Chief Complaint: VAGINAL PROBLEM HPI: HPI: Patient is a 45-year-old female presents with lower abdominal pain and vaginal bleeding. Patient states "I have not had any vaginal bleeding in 5 days but I normally bleed 30 days of the month". "I have been bleeding every day for a few years, and I need to hysterectomy". Patient's been diagnosed with endometriosis. Patient states "I do not have any insurance so I cannot get hysterectomy". Patient reports she came in tonight because she had an increase in abdominal pain. Patient states that she took naproxen before she came in rating pain 10. Patient reports pain has improved since she arrived. (MIKE GARCIA APRN) Review of Systems: Review of Systems: Constitutional: Denies fever or chills Eyes: Denies change in visual acuity HENT: Denies nasal congestion or sore throat Respiratory: Denies cough or shortness of breath Cardiovascular: Denies chest pain or edema GI: Reports lower abdominal pain, nausea. Denies vomiting, bloody stools or diarrhea /vaginal: Denies dysuria. Reports vaginal bleeding. Musculoskeletal: Denies back pain or joint pain Integument: Denies rash Neurologic: Denies headache, focal weakness or sensory changes Endocrine: Denies polyuria or polydipsia Lymphatic: Denies swollen glands Psychiatric: Denies depression or anxiety (MIKE GARCIA APRN) Allergies: Allergies: Allergies Coded Allergies Type Severity Reaction Last Updated Verified clavulanic acid Allergy Intermediate 10/24/19 Yes cephalexin Allergy Unknown 10/13/20 Yes hydrocodone Allergy Unknown 10/13/20 Yes (MIKE GARCIA APRN) Physical Exam: PE: Constitutional: Well developed, well nourished, no acute distress, non-toxic appearance. [] HENT: Normocephalic, atraumatic, bilateral external ears normal, oropharynx moist, no oral exudates, nose normal. [] Eyes: PERRLA, EOMI, conjunctiva normal, no discharge. [] Neck: Normal range of motion, no tenderness, supple, no stridor. [] Cardiovascular:Heart rate regular rhythm, no murmur [] Lungs & Thorax: Bilateral breath sounds clear to auscultation [] Abdomen: Bowel sounds normal, soft, no tenderness, no masses, no pulsatile masses. [] Skin: Warm, dry, no erythema, no rash. [] Back: No tenderness, no CVA tenderness. [] Extremities: No tenderness, no cyanosis, no clubbing, ROM intact, no edema. [] Neurologic: Alert and oriented X 3, normal motor function, normal sensory function, no focal deficits noted. [] Psychologic: Affect normal, judgement normal, mood normal. [] (MIKE GARCIA APRN) Current Patient Data: Vital Signs: Vital Signs Date Time Temp Pulse Resp B/P (MAP) Pulse Ox O2 Delivery O2 Flow Rate FiO2 11/13/20 18:18 97.6 103 18 127/107 ([phone] 97 (MIKE GARCIA APRN) EKG: EKG: [] (MIKE GARCIA APRN) Radiology/Procedures: Radiology/Procedures: [] (MIKE GARCIA APRN) Radiology/Procedures: [place] [address] IMAGING REPORT Signed PATIENT: LYNNETTE MANUEL ACCOUNT: [id number] : 1975 LOCATION: ER AGE: 45 SEX: F EXAM STATUS: REG ER ORD. PHYSICIAN: MIKE GARCIA APRN REASON: lower abdominal pain, OMNI 300, 75ml PROCEDURE: CT ABD PELV W/ IV CONTRST ONLY CT ABDOMEN+PELVIS W dated 11/13/2020 9:58 PM Indication:Reason: lower abdominal pain, OMNI 300, 75ml / Spl. Instructions: / History: Comparison: No comparison is available. Technique: CT images were made through the abdomen and pelvis using an infusion of 75 mL Omnipaque 300. One or more of the following individualized dose reduction techniques were utilized for this examination: 1. Automated exposure control 2. Adjustment of the mA and/or kV according to patient size 3. Use of iterative reconstruction technique Findings: There is some heterogeneous attenuation at the lung bases. This may indicate air trapping. The liver and spleen are homogeneous in density and normal in configuration. There is probably a small hemangioma in the right lobe of the liver. Gallstones are seen in the gallbladder. The gallbladder did not appear distended or inflamed at the time of the exam. Both kidneys enhance with contrast. No mass or obstruction is seen. The adrenal glands are not enlarged. The pancreas appears normal. No retroperitoneal or mesenteric adenopathy is seen. There is no apparent abdominal mass or inflammatory process. A normal appendix is shown inferior to the cecum. Images through the pelvis show no abnormality of the distal ureters or bladder. No pelvic or inguinal adenopathy is seen. Uterus appears to have some central low attenuation probably indicating endometrial thickening. This measures up to about 2.8 cm. There may also be a small posterior uterine fibroid. Uterus and adnexal structures otherwise appear normal for age. There is no separate pelvic mass or inflammatory process. IMPRESSION: Cholelithiasis without CT evidence of cholecystitis. Prominent endometrial thickening, even for a premenopausal patient. Electronically signed by: Manuel Farrar Jr., MD (11/13/2020 10:50 PM) [facility] DICTATED AND SIGNED BY: MANUEL FARRAR Jr, MD DATE: 11/13/204 CC: EMERGENCY,DEPARTMENT; DEANNA CHUNG DO; MIKE GARCIA APRN ~MTH0 0 (GABRIEL BASURTO MD) Heart Score: C/O Chest Pain: No Risk Factors: Risk Factors: DM, Current or recent (<one month) smoker, HTN, HLP, family history of CAD, obesity. Risk Scores: Score 0 - 3: 2.5% MACE over next 6 weeks - Discharge Home Score 4 - 6: 20.3% MACE over next 6 weeks - Admit for Clinical Observation Score 7 - 10: 72.7% MACE over next 6 weeks - Early Invasive Strategies (MIKE GARCIA APRN) Course & Med Decision Making: Course & Med Decision Making Pertinent Labs and Imaging studies reviewed. (See chart for details) [] 45 female presents with lower abdominal pain. Patient has been diagnosed with endometriosis and been told she needs to get a hysterectomy but states that she does not have any insurance. Patient states that she has not bled in 5 days but normally bleeds every day and goes to at least a pad every couple hours. Patient reports she came in today because she had 10/10 pain until she took naproxen. Patient is rating pain at 3/10 and denying needing anything for pain at this time. Patient is requesting a CT of her pelvis and abdomen. UA is positive for leuks. 1 g IM Rocephin given to treat UTI. Transfer of patient care to Dr. Basurto at 2148 (MIKE GARCIA APRN) Course & Med Decision Making See [facility] report for detail. Pt. was not issued a rx. for Cephalexin. Patient is to follow-up primary care. Patient follow-up pending culture. Patient return if any concerns. Patient is to take Bactrim DS twice a day. (GABRIEL BASURTO MD) Dragon Disclaimer: Dragon Disclaimer: This electronic medical record was generated, in whole or in part, using a voice recognition dictation system. (MIKE GARCIA APRN) Departure Departure: Impression: Primary Impression: Lower abdominal pain Disposition: HOME / SELF CARE / HOMELESS Condition: STABLE Referrals: DEANNA CHUNG DO (PCP) Scripts Sulfamethoxazole/Trimethoprim (BACTRIM DS TABLET) 1 Each Tablet 1 TAB PO BID for uti for 7 Days, #14 TAB 0 Refills Prov: GABRIEL BASURTO MD 11/14/20 Cephalexin (KEFLEX) 750 Mg Capsule 500 MG PO TID for uti symp, #30 CAP Prov: GABRIEL BASURTO MD 11/14/20 Dragon Disclaimer This chart was dictated in whole or in part using Voice Recognition software in a busy, high-work load, and often noisy Emergency Department environment. It may contain unintended and wholly unrecognized errors or omissions. (GABRIEL BASURTO MD) Attending Signature Attending Signature I have participated in the care of this patient and I have reviewed and agree with all pertinent clinical information above including history, exam, and recommendations. (GABRIEL BASURTO MD) MIKE GARCIA APRN Nov 13, 2020 20:41 GABRIEL BASURTO MD Nov 14, 2020 00:04
[2020-11-13] MEDS ORDERED: IOHEXOL 300 MG/ML 75 ML VIAL. IV ONE (20:45)
[2020-11-13] MEDS ORDERED: CONTRAST GIVEN. MC PRN (21:00)
[2020-11-13 21:16] LABS: CLARITY,URINE HAZY; COLOR,URINE YELLOW
[2020-11-13 21:17] LABS: BILIRUBIN,URINE NEG (NEG); GLUCOSE,URINE NEG (NEG); NITRITE,URINE NEG (NEG); UROBILINOGEN,URINE 0.2 mg/dL (0.2 mg/dL)
[2020-11-13 21:20] LABS: BACTERIA,URINE MANY /HPF (0-FEW); SQUAMOUS EPITHELIAL CELL,UR MANY /LPF
[2020-11-13 21:42] LABS: BASO # 0.1 x10^3/uL (0.0-0.2); BASO % 1 % (0-3); EOS # 0.4 x10^3/uL (0.0-0.7); EOS % 3 % (0-3); HEMATOCRIT 44.6 % (36.0-47.0); HEMOGLOBIN 15.3 g/dL (12.0-15.5); LYMPH # 3.3 x10^3/uL (1.0-4.8); LYMPH % 22 % (24-48); MEAN CORPUSCULAR HEMOGLOBIN 34 pg (25-35); MEAN CORPUSCULAR HGB CONC 34 g/dL (31-37); MEAN CORPUSCULAR VOLUME 98 fL (79-100); MONO # 1.4 x10^3/uL (0.0-1.1); MONO % 9 % (0-9); NEUT # 10.1 x10^3uL (1.8-7.7); NEUT % 66 % (31-73); PLATELET COUNT 333 x10^3/uL (140-400); RED BLOOD COUNT 4.54 x10^6/uL (3.50-5.40); RED CELL DISTRIBUTION WIDTH 13.2 % (11.5-14.5); WHITE BLOOD COUNT 15.3 x10^3/uL (4.0-11.0)
[2020-11-13 21:44] LABS: CALCIUM 9.4 mg/dL (8.5-10.1); CREATININE 0.9 mg/dL (0.6-1.0); GFR 67.1; POTASSIUM 4.5 mmol/L (3.5-5.1)
[2020-11-13] MEDS ORDERED: cefTRIAXone IM 1 GM VIAL IM ONE (21:45)
[2020-11-13 22:17] LABS: % ATYL 6 % (0-0); % BANDS 9 % (0-9); % LYMPHS 24 % (24-48); % MONOS 7 % (0-10); % SEGS 54 % (35-66)
[2020-11-13 22:18] LABS: PLT ESTIMATE ADEQUATE (ADEQUATE)
--- NOTE | 2020-11-13 22:52 | RAD ---
CT ABDOMEN+PELVIS W dated 11/13/2020 9:58 PM Indication:Reason: lower abdominal pain, OMNI 300, 75ml / Spl. Instructions: / History: Comparison: No comparison is available. Technique: CT images were made through the abdomen and pelvis using an infusion of 75 mL Omnipaque 30 0. One or more of the following individualized dose reduction techniques were utilized for this examinat ion: 1. Automated exposure control 2. Adjustment of the mA and/or kV according to patient size 3. Use of iterative reconstruction technique Findings: There is some heterogeneous attenuation at the lung bases. This may indicate air trapping. The liver and spleen are homogeneous in density and normal in configuration. There is probably a small hemangio ma in the right lobe of the liver. Gallstones are seen in the gallbladder. The gallbladder did not ap pear distended or inflamed at the time of the exam. Both kidneys enhance with contrast. No mass or ob struction is seen. The adrenal glands are not enlarged. The pancreas appears normal. No retroperitone al or mesenteric adenopathy is seen. There is no apparent abdominal mass or inflammatory process. A n ormal appendix is shown inferior to the cecum. Images through the pelvis show no abnormality of the distal ureters or bladder. No pelvic or inguinal adenopathy is seen. Uterus appears to have some central low attenuation probably indicating endometr ial thickening. This measures up to about 2.8 cm. There may also be a small posterior uterine fibroid . Uterus and adnexal structures otherwise appear normal for age. There is no separate pelvic mass or inflammatory process. IMPRESSION: Cholelithiasis without CT evidence of cholecystitis. Prominent endometrial thickening, even for a premenopausal patient. Electronically signed by: Nima Farrar Jr., MD (11/13/2020 10:50 PM) [facility]
[2020-11-14] MEDS ORDERED: CEPH750C9 PO (00:09)
[2020-11-14] MEDS ORDERED: SULF1TAB24 PO (00:22)
== END 2020-11-14 00:20 | disposition home or self-care (01) ==
LOC: ER 18:18
DX: R10.30 Lower abdominal pain, unspecified (principal); R11.0 Nausea; J44.9 Chronic obstructive pulmonary disease, unspecified; F17.210 Nicotine dependence, cigarettes, uncomplicated; Z98.51 Tubal ligation status; Z88.1 Allergy status to other antibiotic agents; Z88.5 Allergy status to narcotic agent
CPT/HCPCS: 36415; 74177; 80048; 81001; 85007; 85025; 87086; 96372; 99285; J0696; Q9967